=== PATIENT | male | born 1940 | race Caucasian/White ===

== ENCOUNTER 2018-02-02 10:00 | Emergency (ER) | payer MEDICARE, OTHER ==
[~2018-02-02] VITALS: Ht 175.3 cm; Wt 91.8 kg
[2018-02-02] MEDS ORDERED: ADVAIR DISK1 IN (10:51)
[2018-02-02] MEDS ORDERED: METOPROL TAR25 MG PO (10:51)
[2018-02-02] MEDS ORDERED: ALLOPURINOL100 MG PO (10:51)
[2018-02-02] MEDS ORDERED: VENTOLIN HFA IN (10:51)
[2018-02-02] MEDS ORDERED: OMEPRAZOLE10 MG PO (10:52)
[2018-02-02] MEDS ORDERED: SINGULAIR10 MG PO (10:52)
[2018-02-02] MEDS ORDERED: IBUPROFEN600 MG PO (11:32)
[2018-02-02] MEDS ORDERED: ZITHROMAX500 MG PO (11:33)
[2018-02-02 11:40] VITALS: BP 128/74
== END 2018-02-02 11:40 | disposition home or self-care (01) ==
LOC: ED 10:00
DX: S40.011A Contusion of right shoulder, initial encounter (principal); M25.511 Pain in right shoulder; J44.1 Chronic obstructive pulmonary disease with (acute) exacerbation; W18.2XXA Fall in (into) shower or empty bathtub, initial encounter; Y93.E1 Activity, personal bathing and showering; Y92.002 Bathroom of unspecified non-institutional (private) residence as the place of occurrence of the external cause

== ENCOUNTER 2018-03-25 10:31 | Inpatient (IN) | payer MEDICARE, OTHER ==
[~2018-03-25] VITALS: Ht 172.7 cm; Wt 94.0 kg
[~2018-03-25 10:31] MED LIST: ADVAIR DISK1 IN; ALLOPURINOL100 MG PO; IBUPROFEN600 MG PO; METOPROL TAR25 MG PO; OMEPRAZOLE10 MG PO; SINGULAIR10 MG PO; VENTOLIN HFA IN; ZITHROMAX500 MG PO
[2018-03-25] MEDS ORDERED: MULTI VIT PO (11:58)
[2018-04-06 15:55] VITALS: BP 119/66
[2018-04-06 20:00] VITALS: BP 153/67
[2018-04-06 20:09] LABS: URINE BILIRUBIN - DIPSTICK NEGATIVE (NEGATIVE); URINE BLOOD DIPSTICK NEGATIVE (NEGATIVE); URINE COLOR YELLOW; URINE GLUCOSE - DIPSTICK NEGATIVE (NEGATIVE); URINE KETONE NEGATIVE (NEGATIVE); URINE LEUK ESTERASE NEGATIVE (NEGATIVE); URINE NITRITE - DIPSTICK NEGATIVE (Negative); URINE PROTEIN - DIPSTICK NEGATIVE (NEG-TRACE); URINE SPECIFIC GRAVITY 1.015; URINE UROBILINOGEN - DIPSTICK 0.2 E.U./dL (0.2)
[2018-04-06 22:00] VITALS: BP 146/79
[2018-04-07] VITALS (9 sets, daily range): BP systolic 102–132; BP diastolic 53–66
[2018-04-07 05:13] LABS: HEMATOCRIT 37.6 % (39.0-50.0); HEMOGLOBIN 12.7 g/dl (14.0-18.0); IMMATURE GRANULOCYTES 0.2 % (0.0-5.0); MEAN CELL VOLUME 96.7 fL CALC (80.0-100.0); MEAN CORPUSCULAR HGB 32.6 pG CALC (26.0-32.0); MEAN CORPUSCULAR HGB CONC 33.8 g/L CALC (32.0-36.0); NEUT# 5.39 thou/uL (1.82-7.42); RED BLOOD COUNT 3.89 mill/uL (4.70-6.10); RED CELL DISTRI WIDTH 13.3 % (11.5-15.5)
[2018-04-07 05:25] LABS: ALBUMIN 3.1 g/dL (3.2-5.0); ALKALINE PHOSPHATASE 53 u/l (38-126); ANION GAP 11 (6-22 (CALC)); BILIRUBIN, TOTAL 0.9 mg/dL (0.0-1.4); BUN 22 mg/dL (8-23); BUN/CREATININE RATIO 17 (12-20 (CALC)); CARBON DIOXIDE 24 mmol/l (22-30); CHLORIDE 107 mmol/l (95-108); CREATININE 1.3 mg/dL (0.7-1.3); GFR 53 ML/MIN (>=60 (CALC)); GFR FOR AFR.AMER. > 60 ML/MIN (>=60 (CALC)); POTASSIUM 4.1 mmol/l (3.5-5.1); SGOT/AST 36 u/l (19-48); SODIUM 138 mmol/l (137-146); TOTAL PROTEIN 5.4 g/dL (6.3-8.2)
[2018-04-07] MEDS ORDERED: DOXYCYCL HYC100 MG PO (10:10)
[2018-04-07] MEDS ORDERED: MEDDOSEPAK PO (10:11)
[2018-04-07] MEDS ORDERED: PERCOCET 10/31 COMBO PO (13:32)
== END 2018-04-07 14:20 | disposition home health service (06) | DRG 483 ==
LOC: ICU 04-06 07:13 → MS2 04-06 07:30 → ICU 04-06 10:25
PROVIDERS: Internal Medicine; ADMIT Orthopaedic Surgery; ATTEND Orthopaedic Surgery
PROC: 0RRJ00Z Replacement of Right Shoulder Joint with Reverse Ball and Socket Synthetic Substitute, Open Approach (ICD-10-PCS; principal; 2018-04-06)
PROC: 0LS30ZZ Reposition Right Upper Arm Tendon, Open Approach (ICD-10-PCS; 2018-04-06)
PROC: 3E0T3BZ Introduction of Anesthetic Agent into Peripheral Nerves and Plexi, Percutaneous Approach (ICD-10-PCS; 2018-04-06)
PROC: 0T9B70Z Drainage of Bladder with Drainage Device, Via Natural or Artificial Opening (ICD-10-PCS; 2018-04-06)
DX: M19.011 Primary osteoarthritis, right shoulder (principal); J44.1 Chronic obstructive pulmonary disease with (acute) exacerbation; S46.111A Strain of muscle, fascia and tendon of long head of biceps, right arm, initial encounter; S43.431A Superior glenoid labrum lesion of right shoulder, initial encounter; M75.111 Incomplete rotator cuff tear or rupture of right shoulder, not specified as traumatic; M10.9 Gout, unspecified; G62.9 Polyneuropathy, unspecified; Z96.653 Presence of artificial knee joint, bilateral; I10 Essential (primary) hypertension; R33.9 Retention of urine, unspecified; X58.XXXA Exposure to other specified factors, initial encounter; Z87.891 Personal history of nicotine dependence
CPT/HCPCS: C9290; J2710